=== PATIENT | male | born 2005 | race Caucasian/White ===

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

== ENCOUNTER → 2025-04-18 | Outpatient (CLI) | payer BC, SELFPAY ==
--- NOTE | 2025-04-18 12:41 | RAD_ITS ---
PROCEDURE: FOOT MIN 3 VIEWS 04/18/2025 REASON FOR EXAM: PAIN OVER R 5TH MT BASE TECHNIQUE: FOOT MIN 3 VIEWS Laterality: Right COMPARISON: Right foot series of 05/14/2020. RAD/Foot min 3 Views IMPRESSION: No radiopaque foreign body is seen. No arthritic process or joint narrowing is noted. No fracture or dislocation is seen. If clinical concern persists, short-term follow-up imaging may be obtained to r ule out a currently occult fracture. Reading Location: [place] [id number]
--- NOTE | 2025-04-18 12:41 | RAD_ITS ---
PROCEDURE: FOOT MIN 3 VIEWS 04/18/2025 REASON FOR EXAM: PAIN OVER R 5TH MT BASE TECHNIQUE: FOOT MIN 3 VIEWS Laterality: Right COMPARISON: Right foot series of 05/14/2020. RAD/Foot min 3 Views IMPRESSION: No radiopaque foreign body is seen. No arthritic process or joint narrowing is noted. No fracture or dislocation is seen. If clinical concern persists, short-term follow-up imaging may be obtained to r ule out a currently occult fracture. Reading Location: [place] [id number]
--- OUTSIDE RECORDS SUMMARY | 2025-04-18 14:25 | XMS RPT_ITS | CCD ---
Author Organization [facility] Care Team Providers Care Plate Put In Worker Name Role Phone Leeroy Martinez Referring Unavailable Leeroy Martinez Attending Unavailable Leeroy Martinez Primary Care Unavailable Problems Problem Classification Problem Date Documented Da te Episodic/Chronic Abdominal pain (2 sources) Inguinal pain; Translations: [Lower abdominal pain, unspecified] Episodic Unclassified (1 source) Low back pain, unspecified; Translations: [Low back pain, unspecified] Onset: 10-27-2024 Results Test Name Value Interpretation Reference Range Facility L/S Spine w Bend Min 6 Vwon 10-09-2024 L/S Spine w Bend Min 6 Vw [facility] Imaging Services [address], [place] [id number] L/S Spine w Bend Min 6 Vw MR#: [id number] Acct: [id number] Name: JUANCARLOS HAUSER Rep #: [id number] : 2005 M 19 From: Héctor Knight PCP: Dr. Leeroy Martinez MD Status: REG CLI Study: L/S Spine w Bend Min 6 Vw Date of Exam: Exam# [id number] Ordering Dr: Leeroy Matrinez PROCEDURE: L/S SPINE W BEND MIN 6 VW TECHNIQUE: 6 view lumbar spine series including lateral flexion and extension views and bilateral oblique views. COMPARISON: None. RAD/L/S Spine w Bend Min 6 Vw IMPRESSION: No significant arthritic process or disc space narrowing is noted. No evidence of spondylolysis or spondylolisthesis. No fracture site is seen. On lateral flexion and extension views, no dynamic instability is seen. Sacroiliac joints appear symmetric and within the normal range. No other significant osseous abnormality is noted Reading Location: [address] CC: Dr. Leeroy Martinez MD Swaging Machine Operator: Signed Normal [facility] - Microbiology an d Antimicrobial susceptibilityon 05-19-2022 SARS-CoV-2 (COVID-19) RNA BERNICE+probe Ql (Unsp spec) Not detected Not Detect [facility] Work Phone: Comment on above: Normal Reference Ran ge: Not DetectedMethod:(RT-PCR) real-time reverse transcriptase PCRLuminex ROLF Instrument*The Food and Drug Administration (FDA) has issued an Emergency Use Authorization (EAU) for the ROLF SARS-CoV-2 Assay for the rapid detection of the virus that causes COVID-19. This test has been validated, but the FDAs independent review of this validation is pending.*Negative results do not preclude infection and should not be used as the sole basis for treatment or patient management. Optimum specimen types and timing for peak viral levels during infections caused by SARS-CoV-2 have not been determined. Collection of multiple specimens from the same patient may be necessary to detect the virus. The possibility of a false negative result should be considered if the patient has clinical presentation or has had recent exposure. Laboratory - Microbiology an d Antimicrobial susceptibilityon 03-31-2022 SARS-CoV-2 (COVID-19) RNA BERNICE+probe Ql (Unsp spec) Detected Not Detect [facility] Work Phone: Comment on above: Previous reported re sult: Positive Edited by: PALLAVI on 03/31/22:2122Normal Reference Range: Not DetectedMethod:(RT-PCR) real-time reverse transcriptase PCRLuminex ROLF Instrument*The Food and Drug Administration (FDA) has issued an Emergency Use Authorization (EAU) for the ROLF SARS-CoV-2 Assay for the rapid detection of the virus that causes COVID-19. This test has been validated, but the FDAs independent review of this validation is pending.*Negative results do not preclude infection and should not be used as the sole basis for treatment or patient management. Optimum specimen types and timing for peak viral levels during infections caused by SARS-CoV-2 have not been determined. Collection of multiple specimens from the same patient may be necessary to detect the virus. The possibility of a false negative result should be considered if the patient has clinical presentation or has had recent exposure. Encounters Encounter Date Encounter Type Care Provider Facility Start: 10-09-2024 End: 10-09-2024 [facility] Start: 07-20-2022 End: 07-20-2022 ambulatory [facility] Work Phone: Start: 07-20-2022 End: 07-20-2022 Patient encounter procedure [facility]-Radiology, [place] Start: 05-19-2022 End: 05-19-2022 Patient encounter procedure [facility]Laboratory, Spec[place] Start: 03-31-2022 End: 03-31-2022 Patient encounter procedure [facility], Specimen Procedures Date Procedure Procedure Detail Performing Clinician Start: 07-20-2022 X-ray of both feet Payers Date Payer Category Payer Self-pay [id number] 2024 Unknown [id number] Private Health Insurance [id number] Unknown [id number] Unknown [id number] Social History Date Type Detail Facility Start: 05-07-2021 End: 05-07-2021 Tobacco smoking status NHIS Unknown if ever smoked [facility] Work Phone: Start: 2005 Sex Assigned At Male [facility] Work Phone: Evaluation note Note Date & Type Note Facility Evaluation note No assessment information availa ble [facility] Work Phone: Chief Complaint and Reason for Visit Chief Complaint FOOT PAIN Summary Purpose Family History No Family History Records Found Advance Directives No Advanced Directives Records Found Additional Source Comments Goals (unrecognized section and content) Goals may be documented in a n alternate sectionGoals may be documented in an alternate section (unrecognized sect ion and content) No Status Records Found INFORMATION SOURCE (unrecogn ized section and content) DATE CREATED AUTHOR 10/29/2024 [facility] FOR RECORDS PERTAINING TO PATIENTS WHO ARE OR HAVE BEEN ENROLLED IN A CHEMICAL DEPENDENCY/SUBSTANCEABUSE PROGRAM, SOME INFORMATION MAY BE OMITTED. This clinical summary was aggregated from multiple sources. Caution should be exercised in using it in the provision of clinical care. This summary normalizes information from multiple sources, and as a consequence, information in this document may materially change the coding, format and clinical context of patient data. In addition, data may be omitted in some cases. CLINICAL DECISIONS SHOULD BE BASED ON THE PRIMARY CLINICAL RECORDS. [facility] [employer] [facility]. provides no warranty or guarantee of the accuracy or completeness of information in this document.
--- OUTSIDE RECORDS SUMMARY | 2025-04-18 14:25 | XMS RPT_ITS | CCD ---
Author Organization [facility] Care Team Providers Care Bag End Sewer Name Role Phone Leeroy Martinez Referring Unavailable [...] L/S Spine w Bend Min 6 Vw [facility] Imaging Services [address] [place], [place] [id number] L/S Spine w Bend Min 6 Vw MR#: [id number] Acct: [id number] Name: JUANCARLOS HAUSER Rep #: [id number] : 2005 M 19 From: Héctor Knight PCP: Dr. Leeroy Martinez MD Status: REG CLI Study: L/S Spine w Bend Min 6 Vw Date of Exam: Exam# [id number] Ordering Dr: Leeroy Martinez PROCEDURE: L/S SPINE W BEND MIN 6 [...] significant osseous abnormality is noted Reading Location: [address] CC: Dr. Leeroy Martinez MD Tailor'S Aide: Signed Normal [facility] Laboratory - Microbiology an d Antimicrobial susceptibilityon 05-19-2022 SARS-CoV-2 (COVID-19) RNA BERNICE+probe Ql (Unsp spec) Not detected Not Detect [facility] Work Phone: Comment on above: Normal [...] BERNICE+probe Ql (Unsp spec) Detected Not Detect [facility] Work Phone: Comment on above: Previous [...] Provider Facility Start: 10-09-2024 End: 10-09-2024 ambulatory Christianacarekylah Martinez Facility:[facility] Start: 07-20-2022 End: 07-20-2022 ambulatory [facility] Work Phone: Start: 07-20-2022 End: 07-20-2022 Patient encounter procedure [facility]-Radiology, [place] Start: 05-19-2022 End: 05-19-2022 Patient encounter procedure [facility]-Laboratory, Specimen Start: 03-31-2022 End: 03-31-2022 Patient encounter procedure [facility]-Laboratory, Specimen Procedures Date Procedure Procedure Detail Performing Clinician Start: 07-20-2022 X-ray of both feet Payers Date Payer Category Payer Self-pay [id number] 2024 Unknown [id number] Private Health Insurance [id number] Unknown [id number] Social History Date Type Detail Facility Start: 05-07-2021 End: 05-07-2021 Tobacco smoking status NHIS Unknown if ever smoked [facility] Work Phone: Start: 2005 Sex Assigned At Male [facility] Work Phone: Evaluation note Note Date & Type Note Facility Evaluation note No assessment information availa ble [facility] Work Phone: Chief Complaint and Reason [...] section and content) DATE CREATED AUTHOR 10/29/2024 [facility] FOR RECORDS PERTAINING TO PATIENTS WHO ARE [...] BE BASED ON THE PRIMARY CLINICAL RECORDS. [facility] [employer] [facility]. provides no warranty or guarantee of the accuracy or completeness of information in this document.
== END | disposition home or self-care (01) ==
LOC: MTRAD 12:39
PROVIDERS: PCP Family Medicine; Referring Provider Family Medicine; Visit Provider Family Medicine
DX: M79.671 Pain in right foot (principal)
CPT/HCPCS: 73630